=== PATIENT | female | born 1965 | race Caucasian/White ===

== ENCOUNTER 2020-05-13 09:11 | Day surgery (SDC) | payer BC ==
[~2020-05-13 09:11] MED LIST: Midazolam 1 MG/ML 2 ML SDV ONE; Propofol 200 MG/20 ML SDV ONE; Sodium Chloride 0.9% 1,000 ML IV SCH; Sodium Chloride 0.9% 10 ML Syringe FLUSH PRN
[2020-05-13] MEDS ORDERED: Propofol 200 MG/20 ML SDV IV ONE (09:12)
[2020-05-13] MEDS ORDERED: Midazolam 1 MG/ML 2 ML SDV IV ONE (09:12)
--- NOTE | 2020-05-13 10:24 | PCM.PN ---
- General Info Date of Service: 05/13/20 - Review of Systems Systems Review Comment:: 55-year-old female with family history of colon cancer in both parents here for screening colonoscopy. She states her last colon exam was about 5 years ago. She does have some irregularity of her bowel pattern although this is a longstanding condition. She also has occasional hematochezia which she feels is from hemorrhoids. Her recent history and physical is reviewed and no significant changes are noted. I have discussed the proposed colonoscopy with the patient. She agrees to proceed excepting risks. - Patient Data Vitals - Most Recent: Last Vital Signs Temp 96 F L 05/13/20 09:35 Pulse 65 05/13/20 09:35 Resp 16 05/13/20 09:35 BP 128/76 05/13/20 09:35 Pulse Ox 95 05/13/20 09:35 Lab Results Last 24 Hours: Laboratory Results - last 24 hr 05/13/20 Range/Units 09:26 POC Glucose 107 H (74-106) mg/dl Med Orders - Current: Current Medications Sodium Chloride (Normal Saline) 1,000 mls @ 50 mls/hr IV ASDIRECTED NAY Last Admin: 05/13/20 09:47 Dose: 50 mls/hr Documented by: Sodium Chloride (Saline Flush) 10 ml FLUSH Q8HR PRN PRN Reason: keep vein open Discontinued Medications Midazolam HCl (Versed 1 Mg/Ml) Confirm Administered Dose 2 mg .ROUTE .STK-MED ONE Stop: 05/13/20 08:47 Propofol (Diprivan 20 Ml) Confirm Administered Dose 400 mg .ROUTE .STK-MED ONE Stop: 05/13/20 08:47 Sepsis Event Note - Focused Exam Vital Signs: Vital Signs Temp Pulse Resp BP Pulse Ox 05/13/20 09:35 96 F L 65 16 128/76 95 - Problem List Review Problem List Initiated/Reviewed/Updated: Yes - My Orders Last 24 Hours: My Active Orders 05/12/20 13:29 Resuscitation Status Routine 05/13/20 Breakfast Nothing Per Oral Diet [DIET] 05/13/20 09:00 Blood Glucose Check, Bedside [RC] UPON Patient to Empty Bladder [RC] ASDIRECTED Peripheral IV Care [RC] . DIRECTED Sodium Chloride 0.9% [Normal Saline] 1,000 ml IV ASDIRECTED Sodium Chloride 0.9% [Saline Flush] 10 ml FLUSH Q8HR PRN Peripheral IV Insertion Adult [OM.PC] Routine 05/13/20 10:00 Verify Patient Consent Obtain [RC] ASDIRECTED - Assessment Assessment:: Family history of colon cancer - Plan Plan:: Colonoscopy
--- NOTE | 2020-05-13 11:19 | PCM.OPNOTE ---
- General Post-Op/Procedure Note Date of Surgery/Procedure: 05/13/20 Operative Procedure(s): Colonoscopy with polypectomy Findings: Small polyp in the sigmoid colon Colon otherwise appears normal Pre Op Diagnosis: Family history of colon cancer Post-Op Diagnosis: Colon polyp Anesthesia Technique: MAC Primary Surgeon: Perez Dawn Pathology: Sigmoid colon polyp EBL in mLs: 0 Complications: None Condition: Good
[2020-05-13 12:28] VITALS: BP 139/84; PULSE 76
--- NOTE | 2020-05-13 13:20 | OR ---
DATE OF SURGERY: 05/13/2020 SURGEON: Perez Dawn MD PREOPERATIVE DIAGNOSIS: Family history of colon cancer. POSTOPERATIVE DIAGNOSIS: Colon polyp. OPERATION PERFORMED: Colonoscopy with polypectomy. INDICATIONS FOR SURGERY: This 55-year-old female has a known family history of colon cancer in both her parents. She comes today for screening colonoscopy. FINDINGS: A single polyp was noted in the sigmoid colon 18 cm from the anal verge. This is a small sessile polyp, approximately 4 mm in size. The remainder of the colon and rectum appeared normal. DESCRIPTION OF PROCEDURE: The patient was taken to the operating room. She was given intravenous sedation and with her in the left lateral decubitus position, digital rectal exam was performed showing no rectal masses. The Olympus colonoscope was inserted into the rectum. Retroflexed examination of the rectal canal is performed. The scope was then carefully advanced under direct visualization through the entire length of the colon until the cecum is reached. Cecal acquisition is confirmed by noting the normal internal cecal anatomy including the appendiceal orifice and ileocecal valve. The light was also noted to transilluminate the abdominal wall in the right lower quadrant. After examining the cecum, the scope was slowly withdrawn sequentially re-examining the colonic segments. During withdrawal of the scope, the above-described polyp was identified. This was removed grossly in its entirety with multiple bites of the cold biopsy forceps. With no sign of any complication, and after the entire colon and rectum had been fully examined, the scope was removed and the patient was taken from the operating room in satisfactory condition. ESTIMATED BLOOD LOSS: Zero. COMPLICATIONS: None. PROGNOSIS: Good. /[id number]/MODL
== END 2020-05-13 12:20 | disposition home or self-care (01) ==
LOC: KA.SDS 09:11
PROVIDERS: ATTEND Surgery
DX: Z12.11 Encounter for screening for malignant neoplasm of colon (principal); K63.5 Polyp of colon; F41.9 Anxiety disorder, unspecified; E11.9 Type 2 diabetes mellitus without complications; I10 Essential (primary) hypertension; E78.5 Hyperlipidemia, unspecified; Z79.899 Other long term (current) drug therapy; Z80.0 Family history of malignant neoplasm of digestive organs; Z79.84 Long term (current) use of oral hypoglycemic drugs
CPT/HCPCS: 00812; 82962; J2250; J2704; J7030

== ENCOUNTER 2022-12-17 18:55 | Emergency (ER) | payer OTHER ==
[2022-12-17] MEDS ORDERED: Sodium Chloride 0.9% 1,000 ML IV ONE (19:29)
[2022-12-17] MEDS ORDERED: Ondansetron 4 MG/2 ML SDV IVPUSH ONE (19:29)
[2022-12-17 19:42] LABS: ANION GAP 16.2 mmol/L (5-15)
[2022-12-17] MEDS ORDERED: cefTRIAXone 1 GM Vial IVPUSH ONE (20:04)
[2022-12-17] MEDS ORDERED: Ofloxacin 0.3% Ophth Soln 5 ML Bottle EARRT SCH (20:15)
[2022-12-17] MEDS ORDERED: Ciprofloxacin 500 MG Tab ONE (20:21)
[2022-12-17] MEDS: Ciprofloxacin 500 MG Tab PO ONE ×3 (20:24→21:30)
[2022-12-17] MEDS ORDERED: Ciprofloxacin 0.3% Ophth Soln 5 ML Bottle ONE (20:38)
[2022-12-17] MEDS ORDERED: Ciprofloxacin 0.3% Ophth Soln 5 ML Bottle EARRT ONE (20:42)
[2022-12-17] MEDS ORDERED: Hydrocortisone/Neomycin/Polymyxin B Otic Susp 10 ML Bottle EARRT ONE (20:45)
[2022-12-17] MEDS ORDERED: Promethazine Topical Gel 25mg/0.5 ML Syringe TOP ONE (20:51)
[2022-12-17] MEDS ORDERED: Promethazine 25 MG/ML SDV ONE (20:52)
[2022-12-17] MEDS ORDERED: Promethazine 12.5 MG in Sodium Chloride 0.9% 100 ML IV STA (21:03)
[2022-12-17] MEDS ORDERED: Ondansetron 4 MG Tab.DIS PO PRN (21:16)
[2022-12-17 21:37] VITALS: BP 131/70; PULSE 70
== END 2022-12-17 21:54 | disposition home or self-care (01) ==
LOC: KA.ED 18:55
DX: H60.311 Diffuse otitis externa, right ear (principal); E78.00 Pure hypercholesterolemia, unspecified; I10 Essential (primary) hypertension; E11.9 Type 2 diabetes mellitus without complications; Z79.84 Long term (current) use of oral hypoglycemic drugs; Z79.899 Other long term (current) drug therapy
CPT/HCPCS: 80053; 81001; 82947; 85025; 96361; 96365; 96375; 99283; 99283-25; A9270-GY; J0696; J2405; J2550; J3490; J7030

== ENCOUNTER 2024-10-23 11:44 | Day surgery (SDC) | payer BC ==
[2024-10-23] MEDS ORDERED: Sodium Chloride 0.9% 10 ML Syringe FLUSH PRN ×2 (11:45→13:50)
[2024-10-23] MEDS ORDERED: Propofol 200 MG/20 ML SDV ONE (12:03)
[2024-10-23] MEDS ORDERED: Midazolam 1 MG/ML 2 ML SDV ONE (12:03)
[2024-10-23] MEDS: Sodium Chloride 0.9% 1,000 ML IV SCH (12:18)
[2024-10-23 14:25] VITALS: BP 96/53; PULSE 62
== END 2024-10-23 14:25 | disposition home or self-care (01) ==
LOC: KA.SDS 11:44
PROVIDERS: ATTEND Surgery
DX: Z12.11 Encounter for screening for malignant neoplasm of colon (principal); K57.30 Diverticulosis of large intestine without perforation or abscess without bleeding; E11.40 Type 2 diabetes mellitus with diabetic neuropathy, unspecified; Z86.0100 Personal history of colon polyps, unspecified; I10 Essential (primary) hypertension; E78.5 Hyperlipidemia, unspecified; Z79.84 Long term (current) use of oral hypoglycemic drugs; Z79.899 Other long term (current) drug therapy; Z80.0 Family history of malignant neoplasm of digestive organs
CPT/HCPCS: 00811; 82947; J2250; J2704; J7030